=== PATIENT | male | born 1990 | race Two or more races ===

== ENCOUNTER 2021-07-17 09:03 | Inpatient (IN) | payer OTHER, SELFPAY ==
[2021-07-17 09:30] VITALS: BP 118/64; BP 134/70; PULSE 64; PULSE 75; RESP 16; TEMP 36.9; O2SAT 98; O2SAT 99; BMI 25.1
--- NOTE | 2021-07-17 09:44 | ED_ITS ---
HPI - General Adult General Chief complaint: General Medical Stated complaint: AUBREY LEG PAIN/NO INJURY,DIFF AMBULATING PER EMS Time Seen by Provider: 07/17/21 09:44 History of Present Illness HPI narrative: Patient with 2 complaints 1 is his thigh muscles and legs have been hurting a lot for 2 days getting worse and worse to where it is very very painful to walk, he is homeless and did sleep out in sub freezing temperatures last night, he denies any injury or trauma He also wants to go to detox as he has been drinking, he says he was sober for quite some time but over the last several weeks he has been drinking again, denies fever denies vomiting denies chest pain denies abdomen denies headache Related Data Home Medications Medication Instructions Recorded Confirmed No Known Home Meds 07/17/21 07/17/21 Allergies Allergy/AdvReac Type Severity Reaction Status Date / Time No Known Allergies Allergy Unverified 02/23/20 19:36 [No Known Allergies*] Review of Systems Review of Systems: Positive for bilateral leg pain and difficulty walking due to pain Negatives are no fever no chills no dizziness no weakness no fainting no feeling faint no headache no confusion no neck pain no sore throat no difficulty breathing or swallowing no stiff neck no chest pain no shortness of breath no abdominal pain no nausea vomiting or diarrhea, no problem urinating no problem with bowel, no numbness or weakness Yes all other systems are reviewed and are negative [facility] Past Medical History [facility] Narrative: Patient has been using alcohol regularly, has used cocaine recently, in the past he has used opiates Source: nursing notes reviewed Medical History (Updated 07/17/21 @ 15:23 by MICHELLE Villegas) No known health problems Social History Social History Advance Directives: No Advance Directives Information Provided: No Physical Exam Vital Signs: Vital Signs: Last Vital Signs Temp 98.5 F 07/17/21 09:30 Pulse 92 07/17/21 15:01 Resp 17 07/17/21 15:01 BP 124/63 07/17/21 15:01 Pulse Ox 98 07/17/21 15:01 BMI result Body Mass Index 25.1 General appearance no acute distress Head is normocephalic atraumatic Pupils equal round reactive to light, extraocular motions are intact The pharynx is clear no redness swelling or exudate Neck is supple Chest clear to auscultation bilateral Heart no murmur Abdomen soft nontender Extremities are normal in appearance, there is no redness no wound no ecchymosis, there is tenderness in bilateral thighs and lots of pain with moving his legs but he can ambulate and does have full range of motion but with lots of discomfort, sensation and motor are intact distal, dorsalis pedis pulses are i ntact and symmetrical neuro interaction both expression and comprehension are normal, cerebellar exam was normal, motor is 5/5 x4, sensation is intact and symmetrical in extremities Course Course Course Narrative: Labs were reviewed and CK was 1777 which is elevated, patient was hydrated Case was discussed with attending physician scar who advised patient should be admitted for hydration observation and as he is homeless and requesting detox he needs to be cleared medically before going to detox It was noted bed AST was 76 and ALT was 171, albumin and bilirubin were normal Medical Decision Making Lab Data Lab results reviewed: Yes I reviewed the patient's lab results. Result diagrams: 07/17/21 10:37 07/17/21 10:37 Labs: Lab Results 07/17/21 07/17/21 07/17/21 Range/Units 10:34 10:36 10:37 WBC (4.8-10.8) X10*3/uL RBC (4.60-5.80) X10*6/uL Hgb (14.0-18.0) g/dl Hct (42.0-52.0) % MCV (80.0-98.0) fL MCH (27.0-33.0) pg MCHC (31.0-36.0) g/dl RDW (11.0-16.0) % Plt Count (160-400) X10*3/uL MPV (9.4-12.4) fL Immature Gran % (Auto) (0.0-0.4) % Neut % (Auto) (45-73) % Lymph % (Auto) (20-40) % [place] % (Auto) (2-11) % Eos % (Auto) (0-4) % Baso % (Auto) (0-2) % Lymph # (Auto) (1.2-4.9) X10*3/uL [place] # (Auto) (0.1-1.2) X10*3/uL Eos # (Auto) (0.0-0.4) X10*3/uL Baso # (Auto) (0.0-0.2) X10*3/uL Abs Immat Gran (auto) (0.00-0.03) X10*3/uL Absolute Neuts (auto) (2.0-8.3) x10*3/uL Absolute Nucleated RBC (0.0-0.012) X10*3/uL Nucleated RBC % (auto) (0.0-0.2) /100WBC Sodium 138 (135-145) mmol/L Potassium 4.1 (3.3-5.1) mmol/L Chloride 102 (96-108) mmol/L Carbon Dioxide 30 H (22-29) mmol/L Anion Gap 10 L (12-20) BUN 18 H (9-16) mg/dL Creatinine 1.03 (0.5-1.4) mg/dL Estim Creat Clear Calc 113.7 Estimated GFR > 60 Random Glucose 136 H (60-115) mg/dL Calcium 9.6 (8.4-10.2) mg/dL Phosphorus 2.9 (2.7-4.5) mg/dL Total Bilirubin 0.5 (0.0-1.0) mg/dL Direct Bilirubin 0.2 (0.0-0.5) mg/dL AST 76 H (5-37) U/L ALT 171 H (0-40) U/L Alkaline Phosphatase 52 (39-117) U/L Total Creatine Kinase 1744 H (38-174) U/L Total Protein 6.4 L (6.5-8.0) g/dL Albumin 3.8 (3.5-5.0) g/dL Urine Color Urine Appearance Urine pH (5.0-8.0) Ur Specific [place] (1.005-1.025) Urine Protein (NEG-TRACE) MG/DL Urine Glucose (UA) (NEG) MG/DL Urine Ketones (NEG) MG/DL Urine Blood (NEG) Urine Nitrite (NEG) Ur Leukocyte Esterase (NEG) Urine Opiates Screen (Not Detect) Urine Fentanyl Screen (Not Detect) Ur Barbiturates Screen (Not Detect) Ur Phencyclidine Scrn (Not Detect) Ur Amphetamines Screen (Not Detect) U Benzodiazepines Scrn (Not Detect) Urine Cocaine Screen (Not Detect) U Marijuana (THC) Screen (Not Detect) Ethyl Alcohol < 10 mg/dL COVID-19 (MICHAEL) Negative (Negative) COVID-19 Clin Com See Note 07/17/21 07/17/21 07/17/21 Range/Units 10:37 13:21 13:22 WBC 10.7 (4.8-10.8) X10*3/uL RBC 4.44 L (4.60-5.80) X10*6/uL Hgb 13.1 L (14.0-18.0) g/dl Hct 36.8 L (42.0-52.0) % MCV 82.9 (80.0-98.0) fL MCH 29.5 (27.0-33.0) pg MCHC 35.6 (31.0-36.0) g/dl RDW 12.7 (11.0-16.0) % Plt Count 305 (160-400) X10*3/uL MPV 9.2 L (9.4-12.4) fL Immature Gran % (Auto) 0.3 (0.0-0.4) % Neut % (Auto) 77.0 H (45-73) % Lymph % (Auto) 16.8 L (20-40) % [place] % (Auto) 4.7 (2-11) % Eos % (Auto) 1.0 (0-4) % Baso % (Auto) 0.2 (0-2) % Lymph # (Auto) 1.8 (1.2-4.9) X10*3/uL [place] # (Auto) 0.5 (0.1-1.2) X10*3/uL Eos # (Auto) 0.1 (0.0-0.4) X10*3/uL Baso # (Auto) 0.0 (0.0-0.2) X10*3/uL Abs Immat Gran (auto) 0.03 (0.00-0.03) X10*3/uL Absolute Neuts (auto) 8.2 (2.0-8.3) x10*3/uL Absolute Nucleated RBC 0.000 (0.0-0.012) X10*3/uL Nucleated RBC % (auto) 0.0 (0.0-0.2) /100WBC Sodium (135-145) mmol/L Potassium (3.3-5.1) mmol/L Chloride (96-108) mmol/L Carbon Dioxide (22-29) mmol/L Anion Gap (12-20) BUN (9-16) mg/dL Creatinine (0.5-1.4) mg/dL Estim Creat Clear Calc Estimated GFR Random Glucose (60-115) mg/dL Calcium (8.4-10.2) mg/dL Phosphorus (2.7-4.5) mg/dL Total Bilirubin (0.0-1.0) mg/dL Direct Bilirubin (0.0-0.5) mg/dL AST (5-37) U/L ALT (0-40) U/L Alkaline Phosphatase (39-117) U/L Total Creatine Kinase (38-174) U/L Total Protein (6.5-8.0) g/dL Albumin (3.5-5.0) g/dL Urine Color YELLOW Urine Appearance CLEAR Urine pH 6.0 (5.0-8.0) Ur Specific [place] 1.025 (1.005-1.025) Urine Protein NEG (NEG-TRACE) MG/DL Urine Glucose (UA) NEG (NEG) MG/DL Urine Ketones NEG (NEG) MG/DL Urine Blood NEG (NEG) Urine Nitrite NEG (NEG) Ur Leukocyte Esterase NEG (NEG) Urine Opiates Screen POSITIVE H (Not Detect) Urine Fentanyl Screen POSITIVE H (Not Detect) Ur Barbiturates Screen Not Detected (Not Detect) Ur Phencyclidine Scrn Not Detected (Not Detect) Ur Amphetamines Screen Not Detected (Not Detect) U Benzodiazepines Scrn Not Detected (Not Detect) Urine Cocaine Screen POSITIVE H (Not Detect) U Marijuana (THC) Screen POSITIVE H (Not Detect) Ethyl Alcohol mg/dL COVID-19 (MICHAEL) (Negative) COVID-19 Clin Com Discharge Plan Discharge Clinical Impression: Rhabdomyolysis, Alcohol abuse, Homeless Patient Disposition: Admitted As Inpatient Prescriptions: No Action No Known Home Meds 0RF
[2021-07-17 10:44] LABS: MANUAL DIFF FLAG NO
[2021-07-17 10:49] LABS: Basophils Percent Auto 0.2 % (0-2); Eosinophils Absolute Auto 0.1 X10*3/uL (0.0-0.4); Hematocrit 36.8 % (42.0-52.0); Hemoglobin 13.1 g/dl (14.0-18.0); Imm Gran Abs Auto 0.03 X10*3/uL (0.00-0.03); Imm Gran Pct Auto 0.3 % (0.0-0.4); Lymphocytes Absolute Auto 1.8 X10*3/uL (1.2-4.9); Lymphocytes Percent Auto 16.8 % (20-40); Mean Corpuscular HGB Conc 35.6 g/dl (31.0-36.0); Mean Corpuscular Hemoglobin 29.5 pg (27.0-33.0); Mean Corpuscular Volume 82.9 fL (80.0-98.0); Mean Platelet Volume 9.2 fL (9.4-12.4); Monocytes Absolute Auto 0.5 X10*3/uL (0.1-1.2); Monocytes Percent Auto 4.7 % (2-11); Neutrophils Absolute Auto 8.2 x10*3/uL (2.0-8.3); Platelet Count 305 X10*3/uL (160-400); Red Blood Count 4.44 X10*6/uL (4.60-5.80); Red Cell Distribution Width 12.7 % (11.0-16.0); White Blood Count 10.7 X10*3/uL (4.8-10.8)
[2021-07-17 11:09] LABS: COVID-19 Test Negative (Negative); IDNOW Serial# 9DD0AD1C
[2021-07-17 12:10] LABS: Ethanol < 10 mg/dL
[2021-07-17 12:31] LABS: Anion Gap 10 (12-20); Carbon Dioxide 30 mmol/L (22-29); Chloride 102 mmol/L (96-108); Creatinine Clr Calc Pharmacy 113.7; Estimated Glomerular Filt Rate > 60; Glucose Random 136 mg/dL (60-115); Potassium 4.1 mmol/L (3.3-5.1); Sodium 138 mmol/L (135-145)
[2021-07-17] MEDS: 0.9 % Sodium Chloride 1,000 ML 999 ML IVCONT (13:23)
[2021-07-17 13:39] LABS: Appearance Urine CLEAR; Color Urine YELLOW; Glucose Urine UA NEG (NEG); Leukocyte Esterase Urine NEG (NEG); Nitrite Urine NEG (NEG); Specific Gravity - Urine 1.025 (1.005-1.025); Urine Blood NEG (NEG); Urine Ketones NEG (NEG); Urine Protein NEG (NEG-TRACE)
[2021-07-17 13:54] LABS: Amphetamine Screen Urine Not Detected (Not Detect); Barbiturates, Urine Not Detected (Not Detect); Benzodiazepines Screen Urine Not Detected (Not Detect); Cannabinoid Screen Urine POSITIVE (Not Detect); Cocaine Screen Urine POSITIVE (Not Detect); Fentanyl, urine POSITIVE (Not Detect); Opiate Screen Urine POSITIVE (Not Detect); Phencyclidine Screen Urine Not Detected (Not Detect)
--- NOTE | 2021-07-17 14:16 | PHA.MEDREC ---
Pharmacy Consult ? Medication Reconciliation Pharmacy has completed the medication reconciliation. Patient reports no medication prescription or OTC at home. Roshni Quinn, MichealD
[2021-07-17 15:01] VITALS: BP 124/63; PULSE 92; RESP 17; O2SAT 98
[2021-07-17 15:03] LABS: Alanine Aminotransferase 171 U/L (0-40); Albumin Level 3.8 g/dL (3.5-5.0); Alkaline Phosphatase 52 U/L (39-117); Aspartate Amino Transferase 76 U/L (5-37); Bilirubin Direct 0.2 mg/dL (0.0-0.5); Bilirubin Total 0.5 mg/dL (0.0-1.0); Blood Urea Nitrogen 18 mg/dL (9-16); Calcium 9.6 mg/dL (8.4-10.2); Phosphorus 2.9 mg/dL (2.7-4.5); Total Protein 6.4 g/dL (6.5-8.0)
--- NOTE | 2021-07-17 16:27 | PM.IMHP ---
History of Present Illness Date of Service: 07/17/21 Chief Complaint: leg pain 30yo homeless M coming in with worsening bilateral last pain for the past 2 days to the point where it is difficult to walk. No injury or trauma. Utox in ED positive for cocaine, fentanyl, opiates, and THC. He endorses past IN + injection use of cocaine and fentanyl but states this is not a daily habit. He has not been on MAT and declines it. He states that his bigger problem is EtOH; he is in the habit of drinking 1.5 sleeves of hard liquor daily, most recently yesterday. He is now feeling nauseous and shaky. He has no chronic medical problems and is on no medications. Patient noted to have CPK 1744, ALT 171, AST 76. Review of Systems Review of Systems: Yes all other systems are reviewed and are negative [facility] Medical History (Updated 07/17/21 @ 15:23 by MICHELLE Villegas) No known health problems Pertinent family history: no kidney or neuromuscular disease Social History Advance Directives: No Advance Directives Information Provided: No Narrative: smokes 5 cig/d past use of cocaine + heroin/fentanyl 1.5 sleeves/d hard liquor unemployed homeless Meds Allergies Allergy/AdvReac Type Severity Reaction Status Date / Time No Known Allergies Allergy Unverified 02/23/20 19:36 [No Known Allergies*] Active Medications: Current Medications Acetaminophen (Acetaminophen 325 Mg Tablet) 650 mg PO Q6H PRN PRN Reason: Pain, Mild (Pain Scale 1-3) Folic Acid (Folic Acid 1 Mg Tablet) 1 mg PO DAILY [facility] Sodium Bicarbonate 150 meq/ (Dextrose) 1,000 mls @ 50 mls/hr IV .Q20H [facility] Multivitamins/Vitamin C (Multivitamin Tablet) 1 tab PO DAILY [facility] Nicotine (Nicotine 7 Mg Patch.Td24) 7 mg TRANSDERMA DAILY [facility] Ondansetron HCl (Ondansetron Hcl 4 Mg/2 Ml Vial) 4 mg IVPUSH Q8H PRN PRN Reason: Nausea and Vomiting Pharmacy Consult (Consult Rx Etoh Phenob Dosing) 1 each MISCELLANE ONCE ONE; Protocol Stop: 07/17/21 16:14 Sodium Chloride (0.9 % Sodium Chloride Flush 3 Ml Syringe) 3 ml IVFLUSH QSHIFT [facility] Thiamine HCl (Thiamine Hcl 100 Mg Tablet) 100 mg PO DAILY [facility] Home Medications Medication Instructions Recorded Confirmed Last Taken Type No Known Home Meds 07/17/21 07/17/21 Unknown History Physical Exam Vital Signs and Narrative: Vital Signs: Last Vital Signs Temp 98.5 F 07/17/21 09:30 Pulse 92 07/17/21 15:01 Resp 17 07/17/21 15:01 BP 124/63 07/17/21 15:01 Pulse Ox 98 07/17/21 15:01 BMI result Body Mass Index 25.1 Gen: mildly tremulous HEENT: sclera anicteric, moist mucus membranes Neck: supple Lungs: clear to auscultation bilaterally Heart: regular rate and rhythm, no murmurs Abd: soft, non-tender, non-distended Ext: no edema, bilateral muscle tenderness Skin: warm/well-perfused Neuro: alert and oriented x3, no focal findings Psych: appropriate affect Results Labs CBC and Chem 7: 07/17/21 10:37 07/17/21 10:37 Labs: Laboratory Results - last 24 hr 07/17/21 07/17/21 07/17/21 10:34 10:36 10:37 MCV MCH MCHC RDW Plt Count MPV Immature Gran % (Auto) Neut % (Auto) Lymph % (Auto) [place] % (Auto) Eos % (Auto) Baso % (Auto) Lymph # (Auto) [place] # (Auto) Eos # (Auto) Baso # (Auto) Abs Immat Gran (auto) Absolute Neuts (auto) Absolute Nucleated RBC Nucleated RBC % (auto) Anion Gap 10 L Estim Creat Clear Calc 113.7 Estimated GFR > 60 Random Glucose 136 H Calcium 9.6 Phosphorus 2.9 Total Bilirubin 0.5 Direct Bilirubin 0.2 AST 76 H ALT 171 H Alkaline Phosphatase 52 Total Creatine Kinase 1744 H Total Protein 6.4 L Albumin 3.8 Urine Color Urine Appearance Urine pH Ur Specific [place] Urine Protein Urine Glucose (UA) Urine Ketones Urine Blood Urine Nitrite Ur Leukocyte Esterase Urine Opiates Screen Urine Fentanyl Screen Ur Barbiturates Screen Ur Phencyclidine Scrn Ur Amphetamines Screen U Benzodiazepines Scrn Urine Cocaine Screen U Marijuana (THC) Screen Ethyl Alcohol < 10 COVID-19 (MICHAEL) Negative COVID-19 Clin Com See Note 07/17/21 07/17/21 07/17/21 10:37 13:21 13:22 MCV 82.9 MCH 29.5 MCHC 35.6 RDW 12.7 Plt Count 305 MPV 9.2 L Immature Gran % (Auto) 0.3 Neut % (Auto) 77.0 H Lymph % (Auto) 16.8 L [place] % (Auto) 4.7 Eos % (Auto) 1.0 Baso % (Auto) 0.2 Lymph # (Auto) 1.8 [place] # (Auto) 0.5 Eos # (Auto) 0.1 Baso # (Auto) 0.0 Abs Immat Gran (auto) 0.03 Absolute Neuts (auto) 8.2 Absolute Nucleated RBC 0.000 Nucleated RBC % (auto) 0.0 Anion Gap Estim Creat Clear Calc Estimated GFR Random Glucose Calcium Phosphorus Total Bilirubin Direct Bilirubin AST ALT Alkaline Phosphatase Total Creatine Kinase Total Protein Albumin Urine Color YELLOW Urine Appearance CLEAR Urine pH 6.0 Ur Specific [place] 1.025 Urine Protein NEG Urine Glucose (UA) NEG Urine Ketones NEG Urine Blood NEG Urine Nitrite NEG Ur Leukocyte Esterase NEG Urine Opiates Screen POSITIVE H Urine Fentanyl Screen POSITIVE H Ur Barbiturates Screen Not Detected Ur Phencyclidine Scrn Not Detected Ur Amphetamines Screen Not Detected U Benzodiazepines Scrn Not Detected Urine Cocaine Screen POSITIVE H U Marijuana (THC) Screen POSITIVE H Ethyl Alcohol COVID-19 (MICHAEL) COVID-19 Clin Com Assessment and Plan (1) Rhabdomyolysis: Status: Acute (2) Alcohol abuse: Status: Acute Plan Homeless 30yo M with hx poliysubstane abuse presenting with rhabdomyolysis and early EtOH withdrawal # rhabdomyolysis - admit to M/S for alkaline diuresis, recheck CPK in am, avoid cocaine # EtOH withdrawal - phenobarbital taper, Addiction Medicine/CARE Team consults, vitamins # opioid abuse # cocaine abuse - Addiction Medicine/CARE Team consults # tobacco abuse - NRT # homelessness - CM consult # VTE ppx -low risk; early ambulation Quality Stroke Does the patient have a stroke diagnosis?: No VTE Prior VTE?: No VTE Risk Level:: Medical - low VTE Device Contraindication: Treatment Not Indicated VTE Drug Contraindication: Treatment Not Indicated
[2021-07-17 16:35] VITALS: BP 126/54; PULSE 81; RESP 16; TEMP 35.8; O2SAT 99
[2021-07-17] MEDS: PHENobarbitaL sodium 130 MG/ML VIAL 241 MG IM (17:10)
[2021-07-17] MEDS: Multivitamin TABLET 1 TAB PO (17:10)
[2021-07-17] MEDS: Thiamine HCL 100 MG TABLET PO (17:10)
[2021-07-17] MEDS: Folic Acid 1 MG TABLET PO (17:10)
[2021-07-17] MEDS: Sodium Bicarbonate 8.4% 150 MEQ in Dextrose 5 % 850 ML 50 MEQ IV (17:42)
--- NOTE | 2021-07-17 17:42 | MHC.CARE ---
CARE Team is available for consult when pt is medically cleared.
[2021-07-17] MEDS: PHENobarbitaL sodium 130 MG/ML VIAL 180 MG IM (21:47)
[2021-07-17 23:46] VITALS: PULSE 88; RESP 16; O2SAT 97
[2021-07-18] MEDS: PHENobarbitaL 30 MG TABLET 120 MG PO (00:36)
[2021-07-18 07:59] LABS: Alanine Aminotransferase 127 U/L (0-40); Albumin Level 3.2 g/dL (3.5-5.0); Alkaline Phosphatase 40 U/L (39-117); Anion Gap 10 (12-20); Aspartate Amino Transferase 59 U/L (5-37); Bilirubin Direct 0.2 mg/dL (0.0-0.5); Bilirubin Total 0.5 mg/dL (0.0-1.0); Blood Urea Nitrogen 12 mg/dL (9-16); Calcium 8.8 mg/dL (8.4-10.2); Carbon Dioxide 30 mmol/L (22-29); Chloride 105 mmol/L (96-108); Creatinine Clr Calc Pharmacy 124.6; Estimated Glomerular Filt Rate > 60; Glucose Random 91 mg/dL (60-115); Potassium 3.8 mmol/L (3.3-5.1); Sodium 141 mmol/L (135-145); Total Protein 5.5 g/dL (6.5-8.0)
[2021-07-18 08:30] VITALS: BP 146/59; PULSE 71; RESP 16; TEMP 36.7; O2SAT 97
[2021-07-18] MEDS: PHENobarbitaL 30 MG TABLET 60 MG PO ×2 (08:39→20:56)
[2021-07-18] MEDS: Multivitamin TABLET 1 TAB PO (08:39)
[2021-07-18] MEDS: Thiamine HCL 100 MG TABLET PO (08:39)
[2021-07-18] MEDS: Folic Acid 1 MG TABLET PO (08:39)
[2021-07-18 10:29] LABS: HBsAGNum1 0.19 S/CO (0.00-0.99); Hepatitis B Surface Antigen Negative (Negative); ~HepC Num1 15.42 S/CO (0.00-0.79); ~Hepatitis C Antibody Reactive (Nonreactive)
--- NOTE | 2021-07-18 11:13 | PC.NURSE ---
Pt A&OX3, sleeping but awakens to name. No pain at this time, pt refused nicotine patch. LCA, no signs of distress. WIll continue to monitor.
[2021-07-18 11:35] LABS: HBS Num1 3.21 mIU/mL (0-7.99); HIV AB/AG Nonreactive (Nonreactive); HIV Num 1 0.06 S/CO (0.00-0.99); Hepatitis B Core Antibody Nonreactive (Nonreactive); ~Hepatitis B Surface Antibody NONREACTIVE (Nonreactive)
[2021-07-18] MEDS: Acetaminophen 325 MG TABLET 650 MG PO (12:55)
[2021-07-18] MEDS: Sodium Bicarbonate 8.4% 150 MEQ in Dextrose 5 % 850 ML 50 MEQ IV (12:55)
--- NOTE | 2021-07-18 14:12 | MHC.CM.PN ---
PT IS HOMELESS AND HAS NO SERVICES. PT HAS NO PCP AND NO HCP, HE DECLINES ASSISTANCE WITH EITHER. PT REPORTS HE DID RECEIVE THE COVID-19 VACCINE BUT HAS NO DETAILS. CURRENT DC PLAN TBD PENDING RECOVERY TEAM CONSULT
[2021-07-18 14:44] VITALS: BP 133/73; PULSE 85; RESP 16; TEMP 36.8; O2SAT 98
--- NOTE | 2021-07-18 15:52 | P.PNIM_ITS ---
Subjective Subjective Date of Service: 07/18/21 Interval History: somulent but arousable. No acute issues Review of Systems Denies CP Denies SOB Denies N/V/D Physical Exam Vital Signs: Vital Signs: Last Vital Signs Temp 98.3 F 07/18/21 14:44 Pulse 85 07/18/21 14:44 Resp 16 07/18/21 14:44 BP 133/73 07/18/21 14:44 Pulse Ox 98 07/18/21 14:44 BMI result Body Mass Index 25.1 Const: Other: NAD Resp: Other: Clear A/P Cardio: Other: -S4 + S1/S2 -S3 MRG GI: Other: Sft NABS x 4 quads Extrem: Other: no edema Objective Data Active Medications Acetaminophen (Acetaminophen 325 Mg Tablet) 650 mg PO Q6H PRN PRN Reason: Pain, Mild (Pain Scale 1-3) Last Admin: 07/18/21 12:55 Dose: 650 mg Documented by: FLAVIO Folic Acid (Folic Acid 1 Mg Tablet) 1 mg PO DAILY [facility] Last Admin: 07/18/21 08:39 Dose: 1 mg Documented by: FLAVIO Sodium Bicarbonate 150 meq/ (Dextrose) 1,000 mls @ 50 mls/hr IV .Q20H [facility] Last Admin: 07/18/21 12:55 Dose: 50 mls/hr Documented by: FLAVIO Medication (No Benzodiazepines) 1 each MISCELLANE DAILY [facility] Multivitamins/Vitamin C (Multivitamin Tablet) 1 tab PO DAILY [facility] Last Admin: 07/18/21 08:39 Dose: 1 tab Documented by: FLAVIO Nicotine (Nicotine 7 Mg Patch.Td24) 7 mg TRANSDERMA DAILY [facility] Last Admin: 07/18/21 08:42 Dose: Not Given Documented by: FLAVIO Non-Admin Reason: Patient Refused Ondansetron HCl (Ondansetron Hcl 4 Mg/2 Ml Vial) 4 mg IVPUSH Q8H PRN PRN Reason: Nausea and Vomiting Phenobarbital (Phenobarbital 30 Mg Tablet) 60 mg PO BID [facility] Stop: 07/19/21 21:01 Last Admin: 07/18/21 08:39 Dose: 60 mg Documented by: ANDREIARAMCALEB Phenobarbital (Phenobarbital 30 Mg Tablet) 30 mg PO BID [facility] Stop: 07/21/21 21:01 Phenobarbital (Phenobarbital 15 Mg Tablet) 15 mg PO DAILY [facility] Stop: 07/23/21 09:01 Sodium Chloride (0.9 % Sodium Chloride Flush 3 Ml Syringe) 3 ml IVFLUSH QSHIFT [facility] Last Admin: 07/18/21 14:52 Dose: Not Given Documented by: FLAVIO Non-Admin Reason: IV Running Thiamine HCl (Thiamine Hcl 100 Mg Tablet) 100 mg PO DAILY [facility] Last Admin: 07/18/21 08:39 Dose: 100 mg Documented by: FLAVIO Labs CBC & Chem 7: 07/17/21 10:37 07/18/21 06:55 Labs: Laboratory Results - last 24 hr 07/18/21 07/18/21 06:55 06:55 Anion Gap 10 L Estim Creat Clear Calc 124.6 Estimated GFR > 60 Random Glucose 91 Calcium 8.8 D Total Bilirubin 0.5 Direct Bilirubin 0.2 AST 59 H ALT 127 H Alkaline Phosphatase 40 D Total Creatine Kinase 966 H D Total Protein 5.5 L Albumin 3.2 L Hep Bs Antigen Negative Hep Bs Antibody NONREACTIVE Hep B Core Total Ab Nonreactive Hepatitis C Ab (EIA) Reactive H HIV 1&2 Ab/P24 Ag 4thGn Nonreactive Assessment and Plan (1) Rhabdomyolysis: Status: Acute (2) Alcohol abuse: Status: Acute Plan Homeless 30yo M with hx poliysubstane abuse presenting with rhabdomyolysis and early EtOH withdrawal 1.Rhabdomyolysis - Trending down -Cont IVF's - Trend CPKs in am 1. EtOH withdrawal - no seizure activity observed - phenobarbital taper, Addiction Medicine/CARE Team consults, vitamins # VTE ppx -low risk; early ambulation Quality Stroke Does the patient have a stroke diagnosis?: No VTE Prior VTE?: No VTE Risk Level:: Medical - low VTE Device Contraindication: Treatment Not Indicated VTE Drug Contraindication: Treatment Not Indicated
--- NOTE | 2021-07-18 16:58 | P.PNADD_ITS ---
Subjective Subjective Date of Service: 07/18/21 Reason For Visit: Rhabdomyolysis,Etoh withdrawal Interim History: Patient currently medically admitted with rhabo Reporting he was in recovery for approx 9 months and then had a recurrence of polysubstance use for the last 2+ weeks. He reports he was using heroin, cocaine and alcohol, varying amounts He has been on MOUD in the past and has stated he does not wish to initiate treatment, but would like to have withdrawal sx treated while here Patient is reporting chills, restlessness, nausea I am holding back my vomit Of note, patient was eating ice cream and has been eating most of the day as reported by RN. Calm affect. Reporting he would like to discharge to a CSS or ATS from here. Patient is from [place], but reports that he resides in [place]. Review of Systems Review of Systems: as per HPI Mental Status Exam Mental Status Exam Patient Appearance: Appropriate Patient Orientation: Person, Place, Time and Situation Level of Consciousness: Awake, Appropriate and Alert Patient Behavior: Cooperative Mood Description: Calm Affect Description: Calm Judgement: Fair Diagnostics Vital Signs (24Hr): Vital Signs - 24 hr 07/17/21 23:46 07/18/21 08:30 07/18/21 14:44 Temperature 98.0 F 98.3 F Pulse Rate 88 71 85 Respiratory Rate 16 16 16 Blood Pressure 146/59 H 133/73 Pulse Oximetry 97 97 98 BMI result Body Mass Index 25.1 Labs Results: 07/17/21 10:37 07/18/21 06:55 Labs: Laboratory Results - last 48 hr 07/17/21 07/17/21 07/17/21 10:34 10:36 10:37 WBC RBC Hgb Hct MCV MCH MCHC RDW Plt Count MPV Immature Gran % (Auto) Neut % (Auto) Lymph % (Auto) [place] % (Auto) Eos % (Auto) Baso % (Auto) Lymph # (Auto) [place] # (Auto) Eos # (Auto) Baso # (Auto) Abs Immat Gran (auto) Absolute Neuts (auto) Absolute Nucleated RBC Nucleated RBC % (auto) Sodium 138 Potassium 4.1 Chloride 102 Carbon Dioxide 30 H Anion Gap 10 L BUN 18 H Creatinine 1.03 Estim Creat Clear Calc 113.7 Estimated GFR > 60 Random Glucose 136 H Calcium 9.6 Phosphorus 2.9 Total Bilirubin 0.5 Direct Bilirubin 0.2 AST 76 H ALT 171 H Alkaline Phosphatase 52 Total Creatine Kinase 1744 H Total Protein 6.4 L Albumin 3.8 Urine Color Urine Appearance Urine pH Ur Specific [place] Urine Protein Urine Glucose (UA) Urine Ketones Urine Blood Urine Nitrite Ur Leukocyte Esterase Urine Opiates Screen Urine Fentanyl Screen Ur Barbiturates Screen Ur Phencyclidine Scrn Ur Amphetamines Screen U Benzodiazepines Scrn Urine Cocaine Screen U Marijuana (THC) Screen Ethyl Alcohol < 10 COVID-19 (MICHAEL) Negative COVID-19 Clin Com See Note Hep Bs Antigen Hep Bs Antibody Hep B Core Total Ab Hepatitis C Ab (EIA) HIV 1&2 Ab/P24 Ag 4thGn 07/17/21 07/17/21 07/17/21 10:37 13:21 13:22 WBC 10.7 RBC 4.44 L Hgb 13.1 L Hct 36.8 L MCV 82.9 MCH 29.5 MCHC 35.6 RDW 12.7 Plt Count 305 MPV 9.2 L Immature Gran % (Auto) 0.3 Neut % (Auto) 77.0 H Lymph % (Auto) 16.8 L [place] % (Auto) 4.7 Eos % (Auto) 1.0 Baso % (Auto) 0.2 Lymph # (Auto) 1.8 [place] # (Auto) 0.5 Eos # (Auto) 0.1 Baso # (Auto) 0.0 Abs Immat Gran (auto) 0.03 Absolute Neuts (auto) 8.2 Absolute Nucleated RBC 0.000 Nucleated RBC % (auto) 0.0 Sodium Potassium Chloride Carbon Dioxide Anion Gap BUN Creatinine Estim Creat Clear Calc Estimated GFR Random Glucose Calcium Phosphorus Total Bilirubin Direct Bilirubin AST ALT Alkaline Phosphatase Total Creatine Kinase Total Protein Albumin Urine Color YELLOW Urine Appearance CLEAR Urine pH 6.0 Ur Specific [place] 1.025 Urine Protein NEG Urine Glucose (UA) NEG Urine Ketones NEG Urine Blood NEG Urine Nitrite NEG Ur Leukocyte Esterase NEG Urine Opiates Screen POSITIVE H Urine Fentanyl Screen POSITIVE H Ur Barbiturates Screen Not Detected Ur Phencyclidine Scrn Not Detected Ur Amphetamines Screen Not Detected U Benzodiazepines Scrn Not Detected Urine Cocaine Screen POSITIVE H U Marijuana (THC) Screen POSITIVE H Ethyl Alcohol COVID-19 (MICHAEL) COVID-19 Clin Com Hep Bs Antigen Hep Bs Antibody Hep B Core Total Ab Hepatitis C Ab (EIA) HIV 1&2 Ab/P24 Ag 4thGn 07/18/21 07/18/21 06:55 06:55 WBC RBC Hgb Hct MCV MCH MCHC RDW Plt Count MPV Immature Gran % (Auto) Neut % (Auto) Lymph % (Auto) [place] % (Auto) Eos % (Auto) Baso % (Auto) Lymph # (Auto) [place] # (Auto) Eos # (Auto) Baso # (Auto) Abs Immat Gran (auto) Absolute Neuts (auto) Absolute Nucleated RBC Nucleated RBC % (auto) Sodium 141 Potassium 3.8 Chloride 105 Carbon Dioxide 30 H Anion Gap 10 L BUN 12 Creatinine 0.94 Estim Creat Clear Calc 124.6 Estimated GFR > 60 Random Glucose 91 Calcium 8.8 D Phosphorus Total Bilirubin 0.5 Direct Bilirubin 0.2 AST 59 H ALT 127 H Alkaline Phosphatase 40 D Total Creatine Kinase 966 H D Total Protein 5.5 L Albumin 3.2 L Urine Color Urine Appearance Urine pH Ur Specific [place] Urine Protein Urine Glucose (UA) Urine Ketones Urine Blood Urine Nitrite Ur Leukocyte Esterase Urine Opiates Screen Urine Fentanyl Screen Ur Barbiturates Screen Ur Phencyclidine Scrn Ur Amphetamines Screen U Benzodiazepines Scrn Urine Cocaine Screen U Marijuana (THC) Screen Ethyl Alcohol COVID-19 (MICHAEL) COVID-19 Clin Com Hep Bs Antigen Negative Hep Bs Antibody NONREACTIVE Hep B Core Total Ab Nonreactive Hepatitis C Ab (EIA) Reactive H HIV 1&2 Ab/P24 Ag 4thGn Nonreactive Medications Medications Current Medications Acetaminophen (Acetaminophen 325 Mg Tablet) 650 mg PO Q6H PRN PRN Reason: Pain, Mild (Pain Scale 1-3) Last Admin: 07/18/21 12:55 Dose: 650 mg Documented by: Folic Acid (Folic Acid 1 Mg Tablet) 1 mg PO DAILY [facility] Last Admin: 07/18/21 08:39 Dose: 1 mg Documented by: Sodium Bicarbonate 150 meq/ (Dextrose) 1,000 mls @ 50 mls/hr IV .Q20H [facility] Last Admin: 07/18/21 12:55 Dose: 50 mls/hr Documented by: Medication (No Benzodiazepines) 1 each MISCELLANE DAILY [facility] Multivitamins/Vitamin C (Multivitamin Tablet) 1 tab PO DAILY [facility] Last Admin: 07/18/21 08:39 Dose: 1 tab Documented by: Nicotine (Nicotine 7 Mg Patch.Td24) 7 mg TRANSDERMA DAILY [facility] Last Admin: 07/18/21 08:42 Dose: Not Given Documented by: Ondansetron HCl (Ondansetron Hcl 4 Mg/2 Ml Vial) 4 mg IVPUSH Q8H PRN PRN Reason: Nausea and Vomiting Phenobarbital (Phenobarbital 30 Mg Tablet) 60 mg PO BID [facility] Stop: 07/19/21 21:01 Last Admin: 07/18/21 08:39 Dose: 60 mg Documented by: Phenobarbital (Phenobarbital 30 Mg Tablet) 30 mg PO BID [facility] Stop: 07/21/21 21:01 Phenobarbital (Phenobarbital 15 Mg Tablet) 15 mg PO DAILY [facility] Stop: 07/23/21 09:01 Sodium Chloride (0.9 % Sodium Chloride Flush 3 Ml Syringe) 3 ml IVFLUSH QSHIFT [facility] Last Admin: 07/18/21 14:52 Dose: Not Given Documented by: Thiamine HCl (Thiamine Hcl 100 Mg Tablet) 100 mg PO DAILY [facility] Last Admin: 07/18/21 08:39 Dose: 100 mg Documented by: Allergies Allergies Allergy/AdvReac Type Severity Reaction Status Date / Time No Known Allergies Allergy Unverified 02/23/20 19:36 [No Known Allergies*] Assessment & Plan Assessment & Plan (1) Opioid use disorder: Status: Acute Code(s): F11.90 - Opioid use, unspecified, uncomplicated Assessment and Plan: * methadone 10mg PRN for opioid withdrawl. one time dose * RSRN to follow up in AM regarding discharge plan * No plan to continue MOUD at time of discharge--so methadone will not be titrated I spent ____25__ minutes with the patient and/or on the patient floor today, greater than?50% of which was spent counseling/coordinating care.
--- NOTE | 2021-07-18 18:30 | PC.NURSE ---
Pt requested methadone, not loaded in pyxis, pharmacy called, they will load it shortly. Pt remains resting comfortably at this time, no signs of distress noted at this time. Call moore within reach. Will continue to monitor.
[2021-07-18] MEDS: methADONE HCl 20 MG/2 ML ORAL.CONC 10 MG PO (21:10)
[2021-07-19 01:40] VITALS: BP 124/51; PULSE 60; RESP 16; TEMP 36.6; O2SAT 97
[2021-07-19 07:29] VITALS: BP 118/55; PULSE 51; RESP 14; TEMP 36.3; O2SAT 97
[2021-07-19 07:36] LABS: MANUAL DIFF FLAG NO
[2021-07-19 07:40] LABS: Basophils Percent Auto 0.3 % (0-2); Eosinophils Absolute Auto 0.2 X10*3/uL (0.0-0.4); Hematocrit 37.5 % (42.0-52.0); Hemoglobin 13.3 g/dl (14.0-18.0); Imm Gran Abs Auto 0.02 X10*3/uL (0.00-0.03); Imm Gran Pct Auto 0.3 % (0.0-0.4); Lymphocytes Absolute Auto 3.4 X10*3/uL (1.2-4.9); Lymphocytes Percent Auto 43.6 % (20-40); Mean Corpuscular HGB Conc 35.5 g/dl (31.0-36.0); Mean Corpuscular Hemoglobin 29.4 pg (27.0-33.0); Mean Corpuscular Volume 82.8 fL (80.0-98.0); Mean Platelet Volume 9.5 fL (9.4-12.4); Monocytes Absolute Auto 0.9 X10*3/uL (0.1-1.2); Monocytes Percent Auto 11.8 % (2-11); Neutrophils Absolute Auto 3.2 x10*3/uL (2.0-8.3); Platelet Count 306 X10*3/uL (160-400); Red Blood Count 4.53 X10*6/uL (4.60-5.80); Red Cell Distribution Width 12.8 % (11.0-16.0); White Blood Count 7.7 X10*3/uL (4.8-10.8)
[2021-07-19] MEDS: PHENobarbitaL 30 MG TABLET 60 MG PO ×2 (07:46→20:48)
[2021-07-19] MEDS: Folic Acid 1 MG TABLET PO (07:46)
[2021-07-19] MEDS: Thiamine HCL 100 MG TABLET PO (07:46)
[2021-07-19] MEDS: Nicotine 7 MG PATCH.TD24 TRANSDERMA (07:46)
[2021-07-19] MEDS: Multivitamin TABLET 1 TAB PO (07:47)
[2021-07-19 07:56] LABS: Alanine Aminotransferase 104 U/L (0-40); Albumin Level 3.3 g/dL (3.5-5.0); Alkaline Phosphatase 44 U/L (39-117); Anion Gap 7 (12-20); Aspartate Amino Transferase 43 U/L (5-37); Bilirubin Total 0.2 mg/dL (0.0-1.0); Blood Urea Nitrogen 13 mg/dL (9-16); Calcium 9.1 mg/dL (8.4-10.2); Carbon Dioxide 31 mmol/L (22-29); Chloride 106 mmol/L (96-108); Creatinine Clr Calc Pharmacy 119.5; Estimated Glomerular Filt Rate > 60; Glucose Fasting 69 mg/dL (60-99); Potassium 4.2 mmol/L (3.3-5.1); Sodium 140 mmol/L (135-145); Total Protein 5.7 g/dL (6.5-8.0)
[2021-07-19] MEDS: Sodium Bicarbonate 8.4% 150 MEQ in Dextrose 5 % 850 ML 50 MEQ IV (08:55)
--- NOTE | 2021-07-19 11:32 | PC.NURSE ---
seen by graduation coach, now on phone completing intake with given resources for detox bed ([facility]).
--- NOTE | 2021-07-19 11:57 | MHC.RECOVSUP ---
Recovery Support note: Patient is a 30 year old Gabonese speaking male who presented [place] [facility] [place] EMS due to leg and groin pain and was admitted to the hospital for treatment of rhabdomyolysis. Patient has expressed interest in transferring to a detox facility after discharge. This process description writer met with patient to discuss substance use treatment options. Patient is interested in detox however reluctant to leave the area. Discussed alternatives and bed availability with patient. Patient agreeable to being referred to [facility]. Intake with [facility] completed. When patient is ready for discharge, patient will need to be [facility]. This process description writer will follow up with patient on 07/20. Discussed case with patient's RN.
--- NOTE | 2021-07-19 15:56 | P.PNIM_ITS ---
Subjective Subjective Date of Service: 07/19/21 Interval History: no acute distress Review of Systems Denies CP Denies SOB Denies N/V/D Physical Exam Vital Signs: Vital Signs: Last Vital Signs Temp 97.4 F 07/19/21 07:29 Pulse 51 07/19/21 07:29 Resp 14 07/19/21 07:29 BP 118/55 L 07/19/21 07:29 Pulse Ox 97 07/19/21 07:29 BMI result Body Mass Index 25.1 Const: Other: No acute distress Resp: Other: clear A/P Cardio: Other: -S4 +S1/S2 -S3 no MRG GI: Other: soft NT/ND NABS x 4 quads Extrem: Other: no edema bilaterally Objective Data Active Medications Acetaminophen (Acetaminophen 325 Mg Tablet) 650 mg PO Q6H PRN PRN Reason: Pain, Mild (Pain Scale 1-3) Last Admin: 07/18/21 12:55 Dose: 650 mg Documented by: FLAVIO Folic Acid (Folic Acid 1 Mg Tablet) 1 mg PO DAILY [facility] Last Admin: 07/19/21 07:46 Dose: 1 mg Documented by: DENNIS Medication (No Benzodiazepines) 1 each MISCELLANE DAILY [facility] Methadone HCl (Methadone Hcl 20 Mg/2 Ml Oral.Conc) 10 mg PO ONCE PRN PRN Reason: Opiate Withdrawal Last Admin: 07/18/21 21:10 Dose: 10 mg Documented by: JAH Multivitamins/Vitamin C (Multivitamin Tablet) 1 tab PO DAILY [facility] Last Admin: 07/19/21 07:47 Dose: 1 tab Documented by: DENNIS Nicotine (Nicotine 7 Mg Patch.Td24) 7 mg TRANSDERMA DAILY [facility] Last Admin: 07/19/21 07:46 Dose: 7 mg Documented by: DENNIS Ondansetron HCl (Ondansetron Hcl 4 Mg/2 Ml Vial) 4 mg IVPUSH Q8H PRN PRN Reason: Nausea and Vomiting Phenobarbital (Phenobarbital 30 Mg Tablet) 60 mg PO BID [facility] Stop: 07/19/21 21:01 Last Admin: 07/19/21 07:46 Dose: 60 mg Documented by: DENNIS Phenobarbital (Phenobarbital 30 Mg Tablet) 30 mg PO BID [facility] Stop: 07/21/21 21:01 Phenobarbital (Phenobarbital 15 Mg Tablet) 15 mg PO DAILY [facility] Stop: 07/23/21 09:01 Sodium Chloride (0.9 % Sodium Chloride Flush 3 Ml Syringe) 3 ml IVFLUSH QSHIFT [facility] Last Admin: 07/19/21 09:18 Dose: Not Given Documented by: DENNIS Non-Admin Reason: Med Not Available Thiamine HCl (Thiamine Hcl 100 Mg Tablet) 100 mg PO DAILY [facility] Last Admin: 07/19/21 07:46 Dose: 100 mg Documented by: DENNIS Labs CBC & Chem 7: 07/19/21 07:07 07/19/21 07:07 Labs: Laboratory Results - last 24 hr 07/19/21 07/19/21 07:07 07:07 MCV 82.8 MCH 29.4 MCHC 35.5 RDW 12.8 Plt Count 306 MPV 9.5 Immature Gran % (Auto) 0.3 Neut % (Auto) 41.0 L Lymph % (Auto) 43.6 H [place] % (Auto) 11.8 H Eos % (Auto) 3.0 Baso % (Auto) 0.3 Lymph # (Auto) 3.4 [place] # (Auto) 0.9 Eos # (Auto) 0.2 Baso # (Auto) 0.0 Abs Immat Gran (auto) 0.02 Absolute Neuts (auto) 3.2 Absolute Nucleated RBC 0.000 Nucleated RBC % (auto) 0.0 Anion Gap 7 L Estim Creat Clear Calc 119.5 Estimated GFR > 60 Fasting Glucose 69 Calcium 9.1 Total Bilirubin 0.2 AST 43 H ALT 104 H Alkaline Phosphatase 44 Total Creatine Kinase 695 H Total Protein 5.7 L Albumin 3.3 L Assessment and Plan (1) Rhabdomyolysis: Status: Acute (2) Alcohol abuse: Status: Acute Plan Homeless 30yo M with hx poliysubstane abuse presenting with rhabdomyolysis and early EtOH withdrawal 1.Rhabdomyolysis ? - Trending down ? - D/C BiCarb drip...reassess CPK's in am ? 2. EtOH withdrawal ? - no seizure activity observed ? - phenobarbital taper, Addiction Medicine/CARE Team consults, vitamins # VTE ppx -low risk; early ambulation Quality Stroke Does the patient have a stroke diagnosis?: No VTE Prior VTE?: No VTE Risk Level:: Medical - low VTE Device Contraindication: Treatment Not Indicated VTE Drug Contraindication: Treatment Not Indicated
[2021-07-19] MEDS: methADONE HCl 20 MG/2 ML ORAL.CONC 10 MG PO ×2 (16:29→20:46)
[2021-07-19 18:22] VITALS: BP 121/64; PULSE 64; RESP 16; TEMP 36.7; O2SAT 96
--- NOTE | 2021-07-19 19:00 | PC.NURSE ---
Assumed care of pt Pt at nurse's station asking for sandwich, sherbert, whole milk and crackers. Pt given per request. Pt asking for methadone. Pt made aware that this nurse will look at his orders and will medicate per orders. Pt encouraged to go back into his room while nurses give report in order to preserve other pt's privacy. Pt verbalized understanding and ambulated to his room. Pt limping but gait steady Will continue to monitor
[2021-07-19 20:48] VITALS: BP 128/69; O2SAT 65
--- NOTE | 2021-07-19 21:00 | PC.NURSE ---
Pt medicated per AUG Pt tolerated well
--- NOTE | 2021-07-19 22:30 | PC.NURSE ---
Pt again at nurse's station asking for sherbert, milk and crackers Pt given per request Pt ambulated back to his room
--- NOTE | 2021-07-19 22:50 | PC.NURSE ---
Pt went up to nurses station asking this nurse to look at his previous IV site Site was mildly swollen and red Site was dressed with bacitracin and telfa. Warm pack was placed on top of site which was secured with guaze and tape. Pt tolerated well Will continue to monitor
--- NOTE | 2021-07-20 01:10 | PC.NURSE ---
Pt has no IV access Per pam Shukla to keep IV access off. Pt tolerating PO fluids and meals NAD Will continue to monitor
[2021-07-20 01:39] VITALS: BP 125/58; PULSE 60; RESP 16; TEMP 36.8; O2SAT 98
[2021-07-20 08:09] LABS: MANUAL DIFF FLAG NO
--- NOTE | 2021-07-20 08:12 | PC.NURSE ---
Pt recveived from mine shifter: Pt AOX4 and offers no complaints. NSR noted and lung sounds clear. Pt abd soft and non-tender. Pt self ambulatory with steady gait. Pending repeat blood work and possible D/C today.
[2021-07-20 08:22] LABS: Basophils Percent Auto 0.1 % (0-2); Eosinophils Absolute Auto 0.2 X10*3/uL (0.0-0.4); Eosinophils Percent Auto 2.4 % (0-4); Hematocrit 36.9 % (42.0-52.0); Hemoglobin 13.1 g/dl (14.0-18.0); Imm Gran Abs Auto 0.03 X10*3/uL (0.00-0.03); Imm Gran Pct Auto 0.4 % (0.0-0.4); Lymphocytes Absolute Auto 3.3 X10*3/uL (1.2-4.9); Lymphocytes Percent Auto 43.3 % (20-40); Mean Corpuscular HGB Conc 35.5 g/dl (31.0-36.0); Mean Corpuscular Hemoglobin 29.4 pg (27.0-33.0); Mean Corpuscular Volume 82.7 fL (80.0-98.0); Mean Platelet Volume 9.4 fL (9.4-12.4); Monocytes Absolute Auto 0.8 X10*3/uL (0.1-1.2); Neutrophils Absolute Auto 3.3 x10*3/uL (2.0-8.3); Neutrophils Percent Auto 43.8 % (45-73); Platelet Count 304 X10*3/uL (160-400); Red Blood Count 4.46 X10*6/uL (4.60-5.80); Red Cell Distribution Width 12.9 % (11.0-16.0); White Blood Count 7.5 X10*3/uL (4.8-10.8)
[2021-07-20 08:39] LABS: Alanine Aminotransferase 86 U/L (0-40); Albumin Level 3.2 g/dL (3.5-5.0); Alkaline Phosphatase 49 U/L (39-117); Anion Gap 8 (12-20); Aspartate Amino Transferase 37 U/L (5-37); Bilirubin Total 0.2 mg/dL (0.0-1.0); Blood Urea Nitrogen 11 mg/dL (9-16); Calcium 9.1 mg/dL (8.4-10.2); Carbon Dioxide 32 mmol/L (22-29); Chloride 105 mmol/L (96-108); Creatinine Clr Calc Pharmacy 113.7; Estimated Glomerular Filt Rate > 60; Glucose Fasting 79 mg/dL (60-99); Potassium 4.6 mmol/L (3.3-5.1); Sodium 140 mmol/L (135-145); Total Protein 5.7 g/dL (6.5-8.0)
[2021-07-20 08:56] VITALS: BP 110/46; PULSE 52; RESP 14; TEMP 36.6; O2SAT 100
[2021-07-20] MEDS: Folic Acid 1 MG TABLET PO (10:47)
[2021-07-20] MEDS: Multivitamin TABLET 1 TAB PO (10:47)
[2021-07-20] MEDS: Nicotine 7 MG PATCH.TD24 TRANSDERMA (10:47)
[2021-07-20] MEDS: methADONE HCl 20 MG/2 ML ORAL.CONC 10 MG PO (10:47)
[2021-07-20] MEDS: PHENobarbitaL 30 MG TABLET PO (10:48)
[2021-07-20] MEDS: Thiamine HCL 100 MG TABLET PO (10:48)
--- NOTE | 2021-07-20 11:08 | P.DS_ITS ---
DS: Providers Provider Date of Service: 07/20/21 Date of admission: 07/17/21 16:17 Date of discharge: 07/20/21 Primary care physician: None Physician Consults: 07/17/21 16:02 Addiction Medicine Routine Consulting Provider: Vonda Lui Reason for consultation: cocaine/fentanyl Consult to Care Team Routine Comment: Reason for consultation: cocaine/fentanyl DS: Diagnosis Discharge Diagnosis (1) Rhabdomyolysis: Status: Acute (2) Alcohol abuse: Status: Acute DS: Summary Hospital Course Hospital Course: 30yo homeless M coming in with worsening bilateral last pain for the past 2 days to the point where it is difficult to walk.? No injury or trauma.? Utox in ED positive for cocaine, fentanyl, opiates, and THC.? He endorses past IN + injection use of cocaine and fentanyl but states this is not a daily habit.? He has not been on MAT and declines it.? He states that his bigger problem is EtOH; he is in the habit of drinking 1.5 sleeves of hard liquor daily, most recently yesterday.? He is now feeling nauseous and shaky. He has no chronic medical problems and is on no medications. Patient noted to have CPK 1744, ALT 171, AST 76. Hospital Course Admitted on Phenobarb protocol...no seizure activity/withdraw symptoms. Stated in Bicarb gtt with improvement of CPK's. Care team arranged Detox. Pt did phone intake prior to D/C. Medically acceptable for discharge. Time Spent with Patient Time attestation: Total time spent providing and/or coordinating discharge services: Discharge coordination time: Greater than 30 minutes Quality: Stroke Does the patient have a stroke diagnosis?: No Physical Exam Vital Signs: Vital Signs: Last Vital Signs Temp 97.8 F 07/20/21 08:56 Pulse 52 07/20/21 08:56 Resp 14 07/20/21 08:56 BP 110/46 L 07/20/21 08:56 Pulse Ox 100 07/20/21 08:56 BMI result Body Mass Index 25.1 DS: Data Data Completed and Pending Labs on day of discharge: Laboratory Results - last 24 hr 07/20/21 07/20/21 07/20/21 07:49 07:49 07:50 WBC 7.5 RBC 4.46 L Hgb 13.1 L Hct 36.9 L MCV 82.7 MCH 29.4 MCHC 35.5 RDW 12.9 Plt Count 304 MPV 9.4 Immature Gran % (Auto) 0.4 Neut % (Auto) 43.8 L Lymph % (Auto) 43.3 H [place] % (Auto) 10.0 Eos % (Auto) 2.4 Baso % (Auto) 0.1 Lymph # (Auto) 3.3 [place] # (Auto) 0.8 Eos # (Auto) 0.2 Baso # (Auto) 0.0 Abs Immat Gran (auto) 0.03 Absolute Neuts (auto) 3.3 Absolute Nucleated RBC 0.000 Nucleated RBC % (auto) 0.0 Sodium 140 Potassium 4.6 Chloride 105 Carbon Dioxide 32 H Anion Gap 8 L BUN 11 Creatinine 1.03 Estim Creat Clear Calc 113.7 Estimated GFR > 60 Fasting Glucose 79 Calcium 9.1 Total Bilirubin 0.2 AST 37 ALT 86 H Alkaline Phosphatase 49 Total Creatine Kinase 416 H D Total Protein 5.7 L Albumin 3.2 L Discharge Plan Discharge Patient Disposition: Home, Self-Care Discharge Diagnosis: Rhabdomyolysis Referrals: Physician,None [Primary Care Provider] - 1 Week Discharge Medications: No Action No Known Home Meds 0RF Discharge Orders: Discharge Order (Routine); Ordered 07/20/21 Ordered By: Elvin Allen Diet: advance to usual diet Activity on Discharge: As tolerated Stand Alone Forms: Patient Portal Discharge page Care Plan Goals: F/up with otupatient Detox Health Concerns: No EToH/opiates Plan of Treatment: Detox Assessment: see D/C summary
--- NOTE | 2021-07-20 13:33 | MHC.RECOVSUP ---
Recovery Support note: This food writer re-referred patient to [facility]. No beds available at this time. [facility] encouraged patient to call tomorrow to see if they are able to admit him. Discussed this with patient and provided contact information for [facility]. Discussed going to [facility] as a walk in and offered to Lyft patient to that facility. Discussed low-barrier housing opportunity and provided patient with information on this resource. Patient reports that he came to the hospital with a phone and money and that it is no longer with his belongings. Patient is upset about this and continued to return to this issue throughout consultation. Discussed case with security, RN and nursing extension supervisor. Plan for RN to fill out an incident report for the missing belongings if patient is interested. This food writer is available as needed to assist in discharging patient.
--- NOTE | 2021-07-20 14:27 | PC.NURSE ---
Pt given D/C instructions and denies any further questions. Pt given bus pass by SHANIA Carlisle and walked out by Orestes as well.
== END 2021-07-20 13:40 | disposition home or self-care (01) | DRG 351 ==
LOC: HO.ED 15:23 → HO.EDOVER 16:27
PROVIDERS: Physician Assistant Medical; Admitting Provider Family Medicine; Emergency Provider Emergency Medicine; Visit Provider Hospitalist
DX: M62.82 Rhabdomyolysis (principal); F10.139 Alcohol abuse with withdrawal, unspecified; Z59.02 Unsheltered homelessness; F11.10 Opioid abuse, uncomplicated; Z20.822 Contact with and (suspected) exposure to COVID-19
CPT/HCPCS: 36415; 80048; 80053; 80076; 80307; 81003; 82077; 82550; 84100; 85025; 86704; 86706; 86803; 87340; 87389; 87635; 96360; 99285; J2560